=== PATIENT | female | born 1965 | race Caucasian/White ===

== ENCOUNTER 2017-04-27 06:33 | Day surgery (SDC) | payer OTHER ==
[~2017-04-27 06:33] MED LIST: Buffered Lidocaine 0.9% SYRIN* 5 ML/SYR SYRINGE INTRADERM ONE; Famotidine IV* 10 MG/ML 2 ML (20 mg) IV ONE
[2017-04-27] MEDS ORDERED: ceFAZolin 2 GM PREMIX (*) 50 ML IVPB ONE (06:38)
[2017-04-27] MEDS ORDERED: Famotidine IV* 10 MG/ML 2 ML (20 mg) ONE (06:38)
[2017-04-27] MEDS ORDERED: Dexamethasone IV* 4 MG/ML 1 ML (4 MG) ONE (06:38)
[2017-04-27] MEDS: Dexamethasone IV* 4 MG/ML 1 ML (4 MG) IV SLOW PU ONE ×2 (06:53→06:55)
[2017-04-27] MEDS ORDERED: fentaNYL* 50 MCG/ML 2 ML VIAL (100 MCG VIAL) ONE ×2 (07:42→08:26)
[2017-04-27] MEDS ORDERED: Midazolam* 1 MG/ML 2 ML VIAL (2 MG) ONE (07:42)
[2017-04-27] MEDS ORDERED: Bupivacaine 0.25% SDV* 30 ML ONE (07:45)
[2017-04-27] MEDS ORDERED: oxyCODONE/Acetamin 5/325 MG* TAB PO PRN (07:46)
[2017-04-27] MEDS ORDERED: PROCHLORPERAZINE INJ 5 MG/ML 2 ML VIAL IV PRN (07:46)
[2017-04-27] MEDS ORDERED: fentaNYL* 50 MCG/ML 2 ML VIAL (100 MCG VIAL) IV PRN (07:46)
[2017-04-27] MEDS ORDERED: HYDROcodone/ACETAMIN 5-325 MG* 1 TAB PO PRN (07:46)
[2017-04-27] MEDS ORDERED: Lidocaine 2% PF * 5 ML VIAL ONE (07:51)
[2017-04-27] MEDS ORDERED: Propofol* 10 MG/ML 20 ML BTL IV PUSH ONE (07:51)
[2017-04-27] MEDS ORDERED: Ondansetron INJ* 2 MG/ML VIAL ONE (08:29)
[2017-04-27] MEDS ORDERED: oxyCODONE/Acetamin 5/325 MG* TAB ONE (09:41)
[2017-04-27 10:41] VITALS: BP 120/70
--- NOTE | 2017-04-27 11:16 | OP ---
OPERATIVE REPORT: DATE OF OPERATION: 04/27/17 DATE OF : 69 SURGEON: Bang Rosa MD. ARTS AND CRAFTS TEACHER: TATE Del Valle. ANESTHESIOLOGIST: Dr. Osorio. ANESTHESIA: General. PRE-OP DIAGNOSES: 1. Left recurrent carpal tunnel syndrome. 2. Left cubital tunnel syndrome. POST-OP DIAGNOSES: 1. Left recurrent carpal tunnel syndrome. 2. Left cubital tunnel syndrome. PROCEDURE PERFORMED: 1. Revision of left open carpal tunnel release. 2. Left in situ cubital tunnel release. INDICATIONS: Sujatha has had progressive symptoms, clearly the worst of it was in the small and ring fingers where she is almost constantly numb. She has done well with the prior right cubital tunnel release and carpal tunnel release. She is having recurrence of the left carpal tunnel symptoms as shay elizabeth. I talked to her about her treatment options. Her prior surgery was in 2008. She wanted to pr oceed with revision of left carpal tunnel release and left cubital tunnel release. ESTIMATED BLOOD LOSS: 5 mL. COMPLICATIONS: None. FINDINGS: As expected. DESCRIPTION OF PROCEDURE: The patient was seen in the preoperative holding area. The correct side, site and procedure were identified. We came back to the operating room. The arm was prepped and dr jonesed in the usual fashion. Antibiotics were received and time-out was performed. I exsanguinated the arm with the Esmarch and the tourniquet was inflated to 250 mmHg. I then utiliz ed her prior carpal tunnel release incision and then brought this across the wrist flexion crease ob liquely in Travis type fashion. The dissection was carried down through the skin and some scar tiss ue and some subcutaneous tissue proximally. Distally it looks like the nerve has been nicely releas ed and there was nothing but scar tissue there. At the wrist flexion crease, there was a centimeter where it looked like normal [place] non-released transverse carpal ligament with very clear delineat ed transverse fibers in their normal position. I went ahead and released those. The release was ca rried out just off the radial aspect of the hook of the hamate ulnar to the origin of the thenar mus cles. The release was carried out from proximal to distal working from normal non-scar tissue down through the distal bed of initially the normal ligament and then scar tissue. I completed the relea se proximally and distally, everything was completely released. I released the last centimeter of t he fascia overlying the Murillo's ligament as well, as it looked like the artery was a little bit k inked, coming out of Guyon's canal. Once I had done this, I went ahead and irrigated out the wound. I checked the hand, nerve was completely decompressed, so I closed the skin with 4-0 nylon suture. I then turned my attention to the elbow, where a curvilinear incision was made, centered over Garcia e's ligament. Dissection was carried down through the subcutaneous tissue, proximally with the Bovi e and distally with the tenotomy scissors to preserve the medial and brachial cutaneous nerve. I be sandra to release the ulnar nerve just off the proximal aspect of Murillo's ligament. The release was carried out proximally with the use of an appendiceal retractor placed to retract the subcutaneous t issue and skin superficially. I released well past 8 cm proximal to the medial epicondyle. I then came back and continued the release distally. There was a very prominent anconeus epitrochlearis mu scle. I went ahead and excised the entirety of that muscle with the Bovie and with the rongeur. I then released the remainder of the Murillo's ligament, the superficial FCU fascia, I divided the two heads of the FCU and split the subfascial layer several centimeters distal to the medial epicondyle . Once there was absolutely no compression on the nerve, I went ahead and flexed and extended the e lbow. There was no subluxation of the nerve, so we irrigated out the wound. The subcutaneous tissu e was reapproximated with 3-0 Vicryl suture and the skin was closed with 4-0 nylon suture. A 0.25% Marcaine was infiltrated into all the operative wounds. The wounds were then dressed with 4x4s, hien rile Webril, and ABD at the elbow and then Rajendra bandages. Tourniquet was deflated. The hand pinked up immediately. She was then taken to the recovery room in stable condition. [id number]/[facility] #: [id number]
== END 2017-04-27 10:38 | disposition home or self-care (01) ==
LOC: OREAST 06:33
PROVIDERS: ATTEND Orthopaedic Surgery Hand Surgery
DX: G56.02 Carpal tunnel syndrome, left upper limb (principal); G56.22 Lesion of ulnar nerve, left upper limb; I10 Essential (primary) hypertension; J44.9 Chronic obstructive pulmonary disease, unspecified; I73.00 Raynaud's syndrome without gangrene; F17.210 Nicotine dependence, cigarettes, uncomplicated
CPT/HCPCS: A9270-GY; J0690; J1100; J2250; J2405; J2704; J3010

== ENCOUNTER 2017-06-25 10:03 | Emergency (ER) | payer OTHER ==
[2017-06-25 10:54] VITALS: BP 135/75
--- NOTE | 2017-06-25 11:04 | UC ---
Skin Complaint HPI - HPI Summary HPI Summary: pt c/o sinus pain, pressure , cough, and bilateral ear pain. Pt has history of psoriasis and is on methotrexate and humira with significant reduction of skin plaques as reported by pt. Pt is concerned that she has a psoriatic out break in bilateral ears. - History of Current Complaint Chief Complaint: UCRespiratory Time Seen by Provider: 06/25/17 10:36 Stated Complaint: COUGH,LEFT EAR PAIN Hx Obtained From: Patient Hx Last Menstrual Period: NOVASURE ?: No Onset/Duration: Gradual Onset, Lasting Days, Still Present, Resolved Timing: Constant Onset Severity: Mild Current Severity: Moderate Location: Ear (Right), Ear (Left) Character: Pruritus, Redness, Raised, Painful Aggravating Factor(s): Touch Alleviating Factor(s): Unknown Associated Signs & Symptoms: Positive: Tenderness - Allergy/Home Medications Allergies/Adverse Reactions: Allergies Allergy/AdvReac Type Severity Reaction Status Date / Time Bupropion [From Wellbutrin] Allergy Severe Agitation Verified 06/25/17 10:36 Naproxen [From Aleve] Allergy Severe Facial Verified 06/25/17 10:36 Redness/Flushing, swelling Latex Allergy Intermediate Hives Verified 06/25/17 10:36 Home Medications: Home Medications ARIPiprazole TAB* [Abilify TAB*] 2 mg PO DAILY 06/25/17 [History Confirmed 02/02] Cyclosporine 0.05% OPHTH (NF) [Restasis 0.05% OPHTH] 1 drop BOTH EYES DAILY 02/02 [History Confirmed 06/25/17] Review of Systems Constitutional: Negative Skin: Rash Eyes: Negative ENT: Ear Ache, Sinus Congestion, Sinus Pain/Tenderness Respiratory: Cough Cardiovascular: Negative Gastrointestinal: Negative Genitourinary: Negative Motor: Negative Neurovascular: Negative Musculoskeletal: Negative Neurological: Negative Psychological: Negative Is Patient Immunocompromised?: No All Other Systems Reviewed And Are Negative: Yes PMH/Surg Hx/FS Hx/Imm Hx Previously Healthy: Yes - psoriasis - Surgical History Surgical History: Yes Surgery Procedure, Year, and Place: LAPARSCOPIC NOVA SURE, 2008 - BILATERAL CARPAL TUNNEL AND RT SIDE ULNAR NERVE TRANSPOSITION, 2008 RT BREAST BIOPSY,2011 D&C 2013 BREAST REDUCTION 2012 AND REGRAPHED IN 05/01 HYSTERECTOMY 10/31. [facility] - UTERINE. D & C. 04/27/17- L carpal tunnel and ulnar nerve surgery. - Family History Known Family History: Positive: Cardiac Disease - Social History Occupation: Employed Full-time Lives: With Family Alcohol Use: Occasionally Substance Use Type: None Smoking Status (MU): Heavy Every Day Tobacco Smoker Type: Cigarettes Amount Used/How Often: 1/2 pack day Length of Time of Smoking/Using Tobacco: 35 years Have You Smoked in the Last Year: Yes Household Exposure Type: Cigarettes Physical Exam Triage Information Reviewed: Yes Appearance: Well-Appearing Vital Signs: Initial Vital Signs Temp 97.7 F 06/25/17 10:42 Pulse 75 06/25/17 10:42 Resp 18 06/25/17 10:42 BP 135/75 06/25/17 10:42 Pulse Ox 99 06/25/17 10:42 Vital Signs Reviewed: Yes Eye Exam: Normal ENT Exam: Other ENT: Positive: Sinus tenderness, Other - psoriatic lesions ~ 5mm in bilateral ear canals Dental Exam: Normal Neck exam: Normal Respiratory Exam: Normal Cardiovascular Exam: Normal Musculoskeletal Exam: Normal Neurological Exam: Normal Psychological Exam: Normal Skin: Positive: rashes - bilateral opening to ear canal Course/Dx - Differential Diagnoses - Skin Complaint Differential Diagnoses: Eczema, Other - sinusitis - Diagnoses Provider Diagnoses: psoriasis out break. sinusitis Discharge - Discharge Plan Condition: Stable Disposition: HOME Prescriptions: Azithromycin TAB* [Zithromax TAB (Z-SABAS) 250 mg #6 tabs] 2 tab PO .TODAY, THEN 1 DAILY #1 sabas Fluocinolone Acetonide (Otic) [Dermotic] 0.01 % OT DAILY #1 bottle Patient Education Materials: Sinusitis (ED), Psoriasis (ED) Referrals: Ashley Chaparro [Primary Care Provider] - If Needed
== END 2017-06-25 11:16 | disposition home or self-care (01) ==
LOC: UCCORT 10:03
DX: J32.9 Chronic sinusitis, unspecified (principal); L40.9 Psoriasis, unspecified; F17.210 Nicotine dependence, cigarettes, uncomplicated; Z88.8 Allergy status to other drugs, medicaments and biological substances; Z88.6 Allergy status to analgesic agent
CPT/HCPCS: 99212; G0463

== ENCOUNTER 2017-11-27 08:09 | Emergency (ER) | payer OTHER ==
[2017-11-27 08:44] VITALS: BP 130/73
[2017-11-27] MEDS ORDERED: Ipratropium 0.5MG/2.5ML NEB* 0.5 MG/2.5 ML NEB.SOLN INH ONE (08:54)
[2017-11-27] MEDS ORDERED: Albuterol 2.5 MG/3 ML NEB.SOL* (0.083%) INH ONE (08:54)
--- NOTE | 2017-11-27 08:58 | UC ---
Respiratory Complaint HPI - HPI Summary HPI Summary: 52 yo female with a 2-3 day hx of cough and wheezing now with left otalgia and sore throat no f/c she has psoriatic arthritis and is currently on prednisone for a flare (x 3 days ) no cp or sob - History of Current Complaint Chief Complaint: UCRespiratory Stated Complaint: SORE THROAT, EARS, COUGH Time Seen by Provider: 11/27/17 08:47 Hx Obtained From: Patient Hx Last Menstrual Period: NOVASURE Onset/Duration: Sudden Onset, Lasting Days Timing: Constant Severity Initially: Mild Severity Currently: Moderate Pain Intensity: 6 Pain Scale Used: 0-10 Numeric Character: Cough: Nonproductive Aggravating Factors: Nothing Alleviating Factors: Bronchodilator Associated Signs And Symptoms: Positive: Wheezing, Nasal Congestion - Allergies/Home Medications Allergies/Adverse Reactions: Allergies Allergy/AdvReac Type Severity Reaction Status Date / Time bupropion [From Wellbutrin] Allergy Agitation Verified 11/27/17 08:30 latex Allergy Hives Verified 11/27/17 08:30 naproxen Allergy Facial Verified 11/27/17 08:30 Redness/Flushing Home Medications: Home Medications Oxybutynin TAB* [Ditropan TAB*] 10 mg PO BID 11/27/17 [History Confirmed ] Secukinumab [Cosentyx (2 Syringes)] 150 mg SQ WEEKLY 11/27/17 [History Confirmed 11/27/17] PMH/Surg Hx/FS Hx/Imm Hx Previously Healthy: Yes - psoriatic arhritis Respiratory History: Asthma, Bronchitis - Surgical History Surgical History: Yes Surgery Procedure, Year, and Place: LAPARSCOPIC NOVA SURE, 2008 - BILATERAL CARPAL TUNNEL AND RT SIDE ULNAR NERVE TRANSPOSITION, 2008 RT BREAST BIOPSY,2011 D&C 2013 BREAST REDUCTION 2012 AND REGRAPHED IN 05/01 HYSTERECTOMY 10/31. [facility] - UTERINE. D & C. 04/27/17- L carpal tunnel and ulnar nerve surgery. - Family History Known Family History: Positive: Cardiac Disease, Other - mom with MS - Social History Alcohol Use: Occasionally Substance Use Type: None Smoking Status (MU): Heavy Every Day Tobacco Smoker Type: Cigarettes Amount Used/How Often: 1/2 pack day Length of Time of Smoking/Using Tobacco: 35 years Have You Smoked in the Last Year: Yes Household Exposure Type: Cigarettes Review of Systems Constitutional: Negative Skin: Negative Eyes: Negative ENT: Sore Throat, Ear Ache, Sinus Congestion Respiratory: Cough Cardiovascular: Negative Gastrointestinal: Negative Genitourinary: Negative Motor: Negative Neurovascular: Negative Musculoskeletal: Arthralgia - chronic Neurological: Negative Psychological: Negative Is Patient Immunocompromised?: No All Other Systems Reviewed And Are Negative: Yes Physical Exam Triage Information Reviewed: Yes Appearance: Well-Appearing, No Pain Distress, Well-Nourished Vital Signs: Initial Vital Signs Temp 99.1 F 11/27/17 08:38 Pulse 104 11/27/17 08:38 Resp 20 11/27/17 08:38 BP 130/73 11/27/17 08:38 Pulse Ox 97 11/27/17 08:38 Eyes: Positive: Conjunctiva Clear ENT: Positive: Hearing grossly normal, Sinus tenderness, Uvula midline. Negative: TMs normal - left recctracted, TM bulging, TM dull, TM red, Tonsillar swelling, Tonsillar exudate, Trismus, Muffled voice, Hoarse voice, Dental tenderness Dental Exam: Normal Neck: Positive: Supple, Nontender, No Lymphadenopathy Respiratory: Positive: No respiratory distress, No accessory muscle use, Wheezing Cardiovascular: Positive: RRR, No Murmur Musculoskeletal: Positive: No Edema Neurological: Positive: Alert Psychological Exam: Normal Skin Exam: Normal UC Diagnostic Evaluation - Laboratory O2 Sat by Pulse Oximetry: 97 - normal/ not hypoxic Re-Evaluation - Re-Evaluation First Eval Re-Evaluation Time: 09:22 Change: Improved Respiratory Course/Dx - Differential Dx/Diagnosis Provider Diagnoses: acute bronchitis. serous otitis media Discharge - Sign-Out/Discharge Documenting (check all that apply): Discharge/Admit/Transfer - Discharge Plan Condition: Stable Disposition: HOME Prescriptions: Albuterol 2.5MG/3ML (0.083%)* [Ventolin 2.5 MG/3 ML NEB.SHIMON*] 2.5 mg INH QID PRN #1 neb.shimon PRN Reason: Wheezing DOXYcycline CAP(*) [DOXYcycline 100MG CAP(*)] 100 mg PO BID #14 cap Fluconazole 150 MG (NF) [Diflucan 150 mg (NF)] 150 mg PO ONCE #1 tab predniSONE [Deltasone] 40 mg PO DAILY #6 tab Patient Education Materials: Acute Bronchitis (ED), Serous Otitis Media (ED) Referrals: Ashley Chaparro [Primary Care Provider] - 5 Days (if not better) Additional Instructions: 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
[2017-11-27] MEDS ORDERED: predniSONE TAB* 20 MG PO ONE (09:16)
== END 2017-11-27 09:31 | disposition home or self-care (01) ==
LOC: UCCORT 08:09
DX: J20.9 Acute bronchitis, unspecified (principal); H65.90 Unspecified nonsuppurative otitis media, unspecified ear; F17.210 Nicotine dependence, cigarettes, uncomplicated; Z88.6 Allergy status to analgesic agent; Z88.8 Allergy status to other drugs, medicaments and biological substances
CPT/HCPCS: 99213; G0463; J7512

== ENCOUNTER 2018-12-18 13:46 | Emergency (ER) | payer OTHER ==
--- OUTSIDE RECORDS SUMMARY | 2018-12-18 14:20 | XMS REPORT | Continuity of Care Document ---
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 Rafael Curtis NP Primary Care Physician Unavailable Payers Date Identification Numbers Payment Provider Subscriber Effective: 2011 Policy Number: [id number] [place] [employer] Sujatha B Gallego PayID: [id number] [address] [place] [address] Expires: 2018 Policy Number: [id number] Medicaid Sujatha B Gallego PayID: [id number] [address] [place] [address] Expires: 2010 Policy Number: [id number] [employer] Sujatha B Julián PayID: [id number] [address] [address] [place] [address] Policy Number: [id number] [employer] Sujatha B Gallego PayID: [id number] [address] [place] [address] Effective: 2010 Policy Number: [id number] [place] [employer] Sujatha B Gallego Expires: 2011 PayID: [id number] [address] [place] [address] Advance Directives Description No Information Available Problems Active Problems Provider Date Lateral epicondylitis Sukhi Santana MD Onset: 10/25/2010 Lesion of ulnar nerve Sukhi Santana MD Onset: 10/25/2010 Sprain of ankle Sukhi Santana MD Onset: 08/05/2011 Family history of malignant neoplasm Lupillo Lucio MD Onset: 08/25/2017 of gastrointestinal tract Heartburn Lupillo Lucio MD Onset: 08/25/2017 Essential hypertension Sunil Okeefe M.D., Onset: 10/22/2018 [facility] Dyspnea Sunil Okeefe M.D., Onset: 10/22/2018 [facility] Tobacco user Sunil Okeefe M.D., Onset: 10/22/2018 [facility] Chronic obstructive lung disease Sunil Okeefe M.D., Onset: 10/22/2018 [facility] Family History Date Family Member(s) Observation Comments Father due to [place] () Father Heart Disease Father Heart Attack 71 : (age 70 Mother due to MS complications Years) Mother Multiple Sclerosis Mother Pneumonia 70s Social History Type Date Description Comments Sex Unknown Marital Status Patient is Lives With Significant Other Home Environment Lives With boyfriend Diet No Restrictions 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 Work Status Not Currently Working Tobacco Use Start: Unknown Current Cigarette Smoker 1 Pack Daily Smokeless Tobacco Never Used Smokeless Tobacco ETOH Use Currently consumes 2-3 times a week, alcohol socially beer Recreational Drug Use Denies Drug Use Tobacco Use Start: Unknown Patient is a current 1 ppd x 35 yrs smoker, smokes every day Smoking Status Reviewed: 11/25/18 Patient is a current 1 ppd x 35 yrs smoker, smokes every day Exercise Type/Frequency Does not exercise Allergies, Adverse Reactions, Alerts Active Allergies Reaction Severity Comments Date Latex Rash Wellbutrin Causes Emotional Problems Aleve Swelling 10/25/2010 Medications Active Medications SIG Qnty Indications Ordering Date Provider Aspirin Ec 1 by mouth every R06.02 Hogue, Glenys 81mg Tablets DR mayra Garcia 9 MSN, [employer] Clopidogrel Bisulfate 1 by mouth every 30tabs R06.02 Hogue, Glenys 75mg day Wilbertetta, 9 Tablets MSN, [employer] Isosorbide Mononitrate ER 1 by mouth every 30tabs R06.02 Hogue, Glenys 30mg day Wilbertetta, 9 Tablets ER 24HR MSN, [employer] Restasis 1 drop both eyes 180units H04.123 Lupillo Graves, 0.05% Emulsion twice daily. 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 Magnesium Oxide -MG 1 by mouth every Unknown Supplement day 0 400mg Capsules Hydroxyzine HCL 2 po @ hs and Unknown 50mg Tablets prn 0 Abilify 1 po Am Unknown 2mg Tablets 0 Abilify 1 po hs Unknown 10mg Tablets 0 Advair Diskus use 1 breath Unknown 250-50mcg/Dose twice a day 0 Aerosol Spiriva Handihaler inhale the Unknown 18mcg contents of 1 0 Capsules capsule via handihaler once daily Metoprolol Succinate ER 1 po qd 90tabs Unknown 50mg 0 Tablets ER 24HR Cymbalta qd Unknown 60mg Caps DR Part 0 Claritin po qd Hogue, Glenys 10mg Tablets Jose, 0 MSN, [employer] Protonix 1 po qd Hogue, Glenys 40mg Tablets DR Garcia, 0 MSN, [employer] Albuterol Sulfate prn Hogue, Glenys (2.5mg/3ML) Jose, 0 Nebulizer MSN, [employer] Hydrochlorothiazide 1 po qd 90tabs Hogue, Glenys 25mg Jose, 0 Tablets MSN, [employer] History Medications Golytely drink half the 4000ml Z80.0 Lupillo Lucio, 08/25/2017 - 236gm Solution evening before MD Unknown Rec and half the morning of the procedure (1 cup every 10') Dulcolax 4 tablets taken 4tabs Z80.0 Lupillo Lucio, 08/25/2017 - 5mg Tablets DR glenis 8pm the day Unknown before the procedure Citrate Of Magnesia 1 bottle at 1pm 296ml Z80.0 Lupillo Lucio, 2017 - day before MD Unknown 1.745GM/30ML Solution procedure Restasis 1 drop both 180units H04.123 Lupillo Graves MD 05/25/2017 - 0.05% Emulsion eyes twice 10/26/2018 daily. please dispense 180 vials, which is 3 month supply Fluorometholone please apply 1 5ml H04.123 Lupillo Graves MD 05/25/2017 - 0.1% drop to both Unknown Suspension eyes 2 times daily for 2 weeks Codine 1-2 po as Unknown - needed for pain Unknown Cyclobenzaprine HCL prn Unknown - Unknown 10mg Tablets Humira inject q 2 Unknown - 40mg/0.8ML PSKT weeks Unknown Folic Acid 2 by mouth Unknown - 1mg Tablets every day Unknown Oxybutynin Chloride 2 po bid Unknown - ER Unknown 5mg Tablets ER 24HR Clonidine HCL 1 po daily Unknown - 0.1mg Unknown Tablets Methotrexate 8 po weekly Unknown - 2.5mg Unknown Tablets Meloxicam 1 by mouth Unknown - 15mg Tablets every day c Unknown food Tylenol PM Extra po prn 90tabs Unknown - Strength Unknown 500-25mg Tablets Vicodin 1-2 po q4h prn Hogue, Glenys - 5-500mg Tablets OZZY Garcia, 08/04/2011 [employer] Celexa 1 po qd Hogue, Glenys - 20mg Tablets OZZY Garcia, 10/24/2010 [employer] Diltiazem HCL 1 po bid Hogue, Glenys - 30mg OZZY Garcia, 10/24/2010 Tablets [employer] Xanax 1 tab po qd prn Hogue, Glenys - 1mg Tablets OZZY Garcia, 10/24/2010 [employer] Ibuprofen po qd prn Hogue, Glenys - 600mg Tablets OZZY Garcia, Unknown [employer] Multivitamins 1 po qd Unknown - Tablets 08/04/2011 Immunizations Description No Information Available Vital Signs Date Vital Result Comment 11/25/2018 11:09am BP Systolic Sitting Left Arm 128 mmHg BP Diastolic Sitting Left Arm 75 mmHg Heart Rate 72 /min Respiratory Rate 18 /min Weight 219.00 lb O2 % BldC Oximetry 98 % ora 10/22/2018 8:47am BP Systolic Sitting Left Arm 124 mmHg BP Diastolic Sitting Left Arm 86 mmHg Heart Rate 70 /min Respiratory Rate 16 /min Height 62 inches 5'2" Weight 216.00 lb BMI (Body Mass Index) 39.5 kg/m2 BSA (Body Surface Area) 1.98 m2 Stopover body weight in kilograms 50 kg O2 Saturation Level with Exercise 93 % 10/07/2018 12:55pm BP Systolic Sitting Left Arm 130 mmHg BP Diastolic Sitting Left Arm 83 mmHg Heart Rate 72 /min Respiratory Rate 16 /min Height 62 inches 5'2" Weight 215.00 lb BMI (Body Mass Index) 39.3 kg/m2 BSA (Body Surface Area) 1.97 m2 Stopover body weight in kilograms 50 kg O2 Saturation Level with Exercise 98 % 09/15/2017 8:55am BP Systolic Sitting Left Arm 124 mmHg BP Diastolic Sitting Left Arm 82 mmHg Heart Rate 68 /min Respiratory Rate 16 /min Height 62 inches 5'2" Weight 200.00 lb BMI (Body Mass Index) 36.6 kg/m2 BSA (Body Surface Area) 1.91 m2 Stopover body weight in kilograms 50 kg 08/25/2017 9:36am BP Systolic Sitting Left Arm 120 mmHg BP Diastolic Sitting Left Arm 80 mmHg Heart Rate 84 /min Respiratory Rate 16 /min Height 62 inches 5'2" Weight 200.00 lb BMI (Body Mass Index) 36.6 kg/m2 BSA (Body Surface Area) 1.91 m2 Stopover body weight in kilograms 50 kg 08/05/2011 8:31am Height 62 inches 5'2" Weight 158.00 lb BMI (Body Mass Index) 28.9 kg/m2 10/25/2010 10:46am Height 62 inches 5'2" Weight 157.00 lb BMI (Body Mass Index) 28.7 kg/m2 05/09/2009 2:32pm Heart Rate 74 /min Respiratory Rate 16 /min Weight 149.00 lb Results Description No Information Available Procedures Date Code Description Status 11/15/2018 07853 Echocardiogram Complete Completed 11/10/2018 77443 Stress Test Interpre And Report Only Completed 11/10/2018 68989 Stress Test Physician Super Only Completed 11/10/2018 13040 Myocardial Imaging Tomographic Multiple Study AT Rest Completed Or Stress 10/26/2018 36449 Eye Exam Est Patient Comprehensive Completed 10/22/2018 55480 EKG-Tracing And Report Completed 10/15/2018 93546 Bronchospasm Provocation Evaluation Multi Spirometric Completed Determinati 10/15/2018 71177 Spirometry Completed 08/31/2017 40415448 Colonoscopy Completed 08/31/2017 68739 EGD With Biopsy Completed 08/31/2017 19309 Colonoscopy Completed 10/21/2013 64402 Anesthesia, Lower Abdomen Surgery Not Otherwise Spec Completed 09/09/2013 04682 Anesthesia, Hysteroscopy, Hystersalpingography Completed 05/09/2009 23007 EKG-Tracing And Report Completed 05/09/2009 84703 EKG-Tracing And Report Completed 05/08/2009 55183 Stress Test Interpre And Report Only Completed 05/08/2009 16156 Stress Test Physician Super Only Completed 12/04/2008 56275 Neuroplasty median nerve at carpal tunnel Completed 10/02/2008 08524 Neuroplasty median nerve at carpal tunnel Completed 10/02/2008 55161 Neuroplasty &/or transposition cranial nerve/ulnar Completed nerve at elbow 09/20/2008 14162 EKG Interpretation And Report Only Completed Encounters Type Date Location Provider Dx Diagnosis Office Visit 11/25/2018 Cardiology Office Glenys Hogue R06.02 Shortness of 11:20a Jose, OZZY, breath [employer] I10 Essential (primary) hypertension Office Visit 10/22/2018 9:00a Cardiology Sunil Okeefe J44.9 Chronic Office Yolanda Bertrand, FACC obstructive pulmonary disease, unspecified F17.210 Nicotine dependence, cigarettes, uncomplicated R06.02 Shortness of breath I10 Essential (primary) hypertension Office Visit 10/07/2018 1:00p Pulmonology Brock Drake MD J44.9 Chronic obstructive pulmonary disease, unspecified E66.8 Other obesity F17.210 Nicotine dependence, cigarettes, uncomplicated Z71.6 Tobacco abuse counseling Office Visit 09/15/2017 9:30a Lupillo Lopez MD Z80.0 Family history of malignant neoplasm of digestive organs K21.9 Gastro-esophageal reflux disease without esophagitis Office Visit 08/25/2017 9:30a Lupillo Lopez MD R12 Heartburn Z80.0 Family history of malignant neoplasm of digestive organs Office Visit 05/25/2017 9:15a Ophthalmology Lupillo Graves, H04.123 Dry eye syndrome MD of bilateral lacrimal glands L40.9 Psoriasis, unspecified Office Visit 08/05/2011 [facility]opa[facility] Max, 845.00 Sprains & Strains 9:00a Office Sukhi Newsome MD Ankle Unspec Site Office Visit 10/25/2010 [facility], 726.32 Epicondylitis 10:30a Office Sukhi Newsome MD Lateral 354.2 Lesion Ulnar Nerve Plan of Treatment Future Appointment(s):04/11/2019 2:30 pm - Brock Drake MD at [id number]/09 /2019 - Glenys Hogue, MSN, FNPR06.02 Shortness of breathNew Medication :Aspirin Ec 81 mg - 1 by mouth every dayClopidogrel Bisulfate 75 mg - 1 by mouth every dayIsosorbide Mononitrate ER 30 mg - 1 by mouth every dayNew Labs: Comprehensive Metabolic Panel, Ordered: 11/25/18CBC W/Automated Diff, Ordered: 11/25/18New Orders:Cardiac Catheterization With Poss. Intervention, Ordered: 04/07Comments:I will start her on ASA and Plavix today and have asked her to stop the Celebrex. She will start taking isosorbide and we will set up the cath.I10 Essential (primary) hypertensionComments:No changes.AllFollow up:After cardiac catheterization is completed.
--- NOTE | 2018-12-18 14:35 | UC ---
Throat Pain/Nasal Eloy HPI - HPI Summary HPI Summary: Pt has a right earache and sore throat today. She had a cardiac cath done yesterday in your right wrist, but that is healing well and only mildly tender to touch. She feels like she is coming down with a cold. As I was examining the patient and noted a normal right ear, she said "Maybe it's my tooth, that's been killing me the past few days" She has had pain to the right upper distal molar with swelling of the gum. - History of Current Complaint Stated Complaint: RT EYE/EAR, SORE THROAT, HEADACHE Time Seen by Provider: 12/18/18 14:26 Hx Obtained From: Patient Hx Last Menstrual Period: NOVASURE ?: No Onset/Duration: Gradual Onset Severity: Moderate Cough: None Associated Signs & Symptoms: Positive: Negative - Allergies/Home Medications Allergies/Adverse Reactions: Allergies Allergy/AdvReac Type Severity Reaction Status Date / Time bupropion [From Wellbutrin] Allergy Agitation Verified 12/18/18 14:34 latex Allergy Hives Verified 12/18/18 14:34 naproxen Allergy Facial Verified 12/18/18 14:34 Redness/Flushing Home Medications: Home Medications DULoxetine DR CAP* [Cymbalta CAP*] 60 mg PO QAM 12/18/18 [History Confirmed 08/07] Fluticasone-Salmeterol 500-50* [Advair Diskus 500-50*] 2 puff INH QAM 12/18/18 [ History Confirmed 12/18/18] Hydrochlorothiazide TAB* [Hydrodiuril TAB*] 25 mg PO QAM 12/18/18 [History Confirmed 12/18/18] LoraTADine TAB(NF) [Claritin 10 MG TAB(NF)] 10 mg PO QAM 12/18/18 [History Confirmed 12/18/18] Magnesium Oxide TAB* [MagOx 400 TAB*] 400 mg PO QAM 12/18/18 [History Confirmed 12/18/18] Metoprolol Tartrate TAB* [Lopressor TAB*] 50 mg PO QAM 12/18/18 [History Confirmed 12/18/18] Pantoprazole TAB * [Protonix TAB*] 40 mg PO QAM 12/18/18 [History Confirmed 08/07] Tiotropium CAP.INH* [Spiriva CAP.INH*] 1 cap.inh INH QAM 12/18/18 [History Confirmed 12/18/18] PMH/Surg Hx/FS Hx/Imm Hx Previously Healthy: Yes Cardiovascular History: Hypertension Respiratory History: COPD, Asthma - Surgical History Surgical History: Yes Surgery Procedure, Year, and Place: LAPARSCOPIC NOVA ADELINA, 2008 - BILATERAL CARPAL TUNNEL AND RT SIDE ULNAR NERVE TRANSPOSITION, 2008 RT BREAST BIOPSY,2011 D&C 2013 BREAST REDUCTION 2012 AND REGRAPHED IN 05/01 HYSTERECTOMY 10/31. [facility] - UTERINE. D & C. 04/27/17- L carpal tunnel and ulnar nerve surgery. - Family History Known Family History: Positive: Cardiac Disease, Other - mom with MS - Social History Alcohol Use: Weekly Alcohol Amount: 1-2 drinks per week Substance Use Type: None Smoking Status (MU): Former Smoker Type: Cigarettes Amount Used/How Often: 1/2 pack day Length of Time of Smoking/Using Tobacco: 35 years Have You Smoked in the Last Year: Yes When Did the Patient Quit Smoking/Using Tobacco: Quit November 25, 2018 Household Exposure Type: Cigarettes Review of Systems All Other Systems Reviewed And Are Negative: Yes ENT: Positive: Sore Throat - Right earache and sore throat. Pain right upper distal molar with swelling of the gumline., Ear Ache Is Patient Immunocompromised?: No Physical Exam Triage Information Reviewed: Yes Appearance: Well-Appearing, No Pain Distress, Well-Nourished Vital Signs Reviewed: Yes Eyes: Positive: Conjunctiva Clear ENT: Positive: Hearing grossly normal, Pharynx normal, TMs normal, Uvula midline Dental: Positive: Other: - Right upper distal molar has swelling of the gum but no redness and no drainage. It is tender on palpation. Neck: Positive: Supple, Nontender, No Lymphadenopathy Respiratory: Positive: Lungs clear, Normal breath sounds, No respiratory distress, No accessory muscle use Cardiovascular: Positive: RRR, No Murmur, Pulses Normal, Brisk Capillary Refill Musculoskeletal Exam: Normal Neurological Exam: Normal Psychological Exam: Normal Skin Exam: Normal Throat Pain/Nasal Course/Dx - Course Course Of Treatment: Pt comfortable here. I discussed this with Dr. Galvan and I will start the pt on VK to follow up with dentist on Thursday for an appointment. - Differential Dx/Diagnosis Provider Diagnosis: Toothache Discharge - Sign-Out/Discharge Documenting (check all that apply): Patient Departure All imaging exams completed and their final reports reviewed: No Studies - Discharge Plan Condition: Fair Disposition: HOME Prescriptions: Fluconazole 150 MG TAB* [Diflucan 150 MG TAB*] 150 mg PO UC ONCE PRN 1 Days #1 tablet PRN Reason: Yeast infection Penicillin VK 500 MG TAB(NF) [Penicillin VK 500 mg Tab] 500 mg PO TID 10 Days # 30 tab Patient Education Materials: Dental Abscess (ED) Referrals: Ashley Chaparro [Primary Care Provider] - Additional Instructions: Take your regular pain med as prescribed for severe pain. Definite follow up with your dentist...call Thursday and make an appointment. - Billing Disposition and Condition Condition: FAIR Disposition: Home
[2018-12-18 14:39] VITALS: BP 136/63
== END 2018-12-18 14:59 | disposition home or self-care (01) ==
LOC: UCCORT 13:46
DX: K08.89 Other specified disorders of teeth and supporting structures (principal); I10 Essential (primary) hypertension; J44.9 Chronic obstructive pulmonary disease, unspecified; Z87.891 Personal history of nicotine dependence
CPT/HCPCS: 99212; G0463

== ENCOUNTER 2019-05-11 08:29 | Emergency (ER) | payer OTHER ==
--- OUTSIDE RECORDS SUMMARY | 2019-05-11 08:40 | XMS REPORT | Continuity of Care Document ---
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 Onset: 09/19/2014 Note: bilateral (with previous repair) FH: Multiple sclerosis Gina Guerrero M.D. Onset: 09/19/2014 Note: with nonspecific white matter changes on MRI Trigeminal neuralgia Gina Guerrero M.D. Onset: 09/19/2014 Note: right Lesion of ulnar nerve Bang Rosa MD Onset: 11/18/2016 Low back pain Ben Mensah M.D. Onset: 04/15/2017 Unspecified injury of muscle(s) and tendon(s) Bang Rosa MD Onset: 03/18 of the rotator cuff of left shoulder, subsequent encounter Disorder of shoulder Bang Rosa MD Onset: 10/06/2017 Social History Type Date Description Comments Sex Unknown Smokeless Tobacco Never Used Smokeless Tobacco ETOH Use Occasionally consumes alcohol Recreational Drug Use Denies Drug Use Tobacco Use Start: Unknown End: Patient is a former smoker Unknown Smoking Status Reviewed: 04/08/19 Patient is a former smoker Exercise Type/Frequency Does not exercise Allergies, Adverse Reactions, Alerts Active Allergies Reaction Severity Comments Date Aleve 05/05/2012 Latex 11/14/2014 Wellbutrin 05/02/2015 Environmental 07/08/2017 Medications Active Medications SIG Qnty Indications Ordering Date Provider Wrist Splint neutral or 20 2units Gina Misc extension; humaira Guerrero M.D. 4 at night for 1 month Hydrocodone-Acetaminophen 1 tab by mouth Unknown every 8 hours as 0 5-325mg Tablets needed for pain Ibuprofen 1 by mouth Three Unknown 400mg Tablets times a day as 0 needed Celecoxib 1 po bid Bennett, 200mg Capsules Jianghong, 0 M.DCielo Trospium Chloride 1 by mouth every 60tabs Unknown 20mg Tablets day-extended 0 release Cosentyx 300 Dose 300 mg by Unknown 150mg/ml Soln subcutaneous 0 Prefill Syringe injection every 4 weeks Cymbalta 1 by mouth at Unknown 30mg Caps DR Part bedtime 0 Abilify take one tablet Unknown 2mg Tablets by mouth in A.M. 0 Hydrochlorothiazide 1 po qd Unknown 25mg 0 Tablets Magnesium once a day, Unknown 400mg Capsules 0 Cymbalta 1 po qam 90caps Unknown 60mg Caps DR Part 0 Proventil HFA 2 puffs po q 4 1monthsu Unknown 108(90Base) hours prn 0 mcg/ac Aerosol Advair Diskus 1 puff po bid 1units Unknown 250-50mcg/Dose 0 Aerosol Spiriva Handihaler 1 inhalation po 1month Unknown 18mcg qam 0 Capsules Protonix 1 po qd 100tabs Unknown 40mg Tablets DR 0 Metoprolol Tartrate 1 po every day 60tabs Unknown 25mg 0 Tablets Loratadine 1 po qd 30tabs Unknown 10mg Tablets 0 Medications Administered in Office Medication SIG Qnty Indications Ordering Provider Date Celestone 3 mg and 3mg Bang Rosa MD 01/21/2019 Injection Celestone 3 mg and 3mg Bang Rosa MD 09/17/2018 Injection Celestone 3 mg and 3mg Bang Rosa MD 09/17/2018 Injection Celestone 3 mg and 3mg Bang Rosa MD 11/06/2017 Injection Depomedrol 20MG Bang Rosa MD 10/06/2017 Injection Celestone 3 mg and 3mg Bang Ernandez M.D. 08/12/2017 Injection Celestone 3 mg and 3mg Bang Ernandez M.D. 05/20/2017 Injection Depomedrol 80MG MANJIT Hodge 05/02/2015 Injection Depomedrol 80MG Kelli Fisher M.D. 05/02/2015 Injection Depomedrol 80MG Kelli Fisher M.D. 05/02/2015 Injection Depomedrol 80MG Kelli Fisher M.D. 08/10/2013 Injection Depomedrol 80MG Kelli Fisher M.D. 12/22/2012 Injection Immunizations Description No Information Available Vital Signs Date Vital Result Comment 04/08/2019 11:04am Height 62 inches 5'2" Weight 200.00 lb Heart Rate 68 /min BP Systolic Sitting 131 mmHg BP Diastolic Sitting 81 mmHg Body Temperature 97.4 F Pain Level 0 with pain medication O2 % BldC Oximetry 90 % BMI (Body Mass Index) 36.6 kg/m2 03/18/2019 9:31am Height 62 inches 5'2" Weight 209.00 lb Heart Rate 62 /min BP Systolic 132 mmHg BP Diastolic 82 mmHg Respiratory Rate 18 /min Pain Level 7 Back, legs, hips BMI (Body Mass Index) 38.2 kg/m2 Results Description No Information Available Procedures Date Code Description Status 04/08/2019 23103 Inject/Drain Joint/Bursa Major W/O US Completed 01/21/2019 32412 Inject/Drain Joint/Bursa Major W/O US Completed Medical Devices Description No Information Available Encounters Type Date Location Provider Dx Diagnosis Office Visit 03/18/2019 Orthopedic Bang Rosa, S46.002D Unsp inj 9:45a [facility]/tend the [place] rotator cuff of l shoulder, subs M75.41 Impingement syndrome of right shoulder M19.012 Primary osteoarthritis, left shoulder Office Visit 01/21/2019 2:00p Orthopedic Bang M75.42 Impingement [facility] Rosa MD syndrome of left AT [place] shoulder Assessments Date Code Description Provider 04/08/2019 S46.002D Unspecified injury of muscle(s) and tendon(s) Bang Rosa MD of the rotator cuff of left shoulder, subsequent encounter 04/08/2019 M75.41 Impingement syndrome of right shoulder Bang oRsa MD 03/18/2019 S46.002D Unspecified injury of muscle(s) and tendon(s) Bang Rosa MD of the rotator cuff of left shoulder, subsequent encounter 03/18/2019 M75.41 Impingement syndrome of right shoulder Bang Rosa MD 03/18/2019 M19.012 Primary osteoarthritis, left shoulder Bang Rosa MD 01/21/2019 M75.42 Impingement syndrome of left shoulder Bang Rosa MD Plan of Treatment Future Appointment(s):05/06/2019 9:45 am - Bang Rosa MD [facility]04/28/2019 10:30 am - Bang Rosa MD at [facility]04/08/2019 - Bang Rosa MDS46.002D Unspecified injury of muscle(s) and tendon(s) of the rotator cuff of left shoulder, subsequent encounterFollow up:Follow up: 10-14 days kcjtdvU74.41 Impingement syndrome of right shoulder Functional Status Description No Information Available Mental Status Description No Information Available Referrals Description No Information Available
[2019-05-11 08:57] VITALS: BP 132/77
--- NOTE | 2019-05-11 09:39 | ED ---
Skin Complaint - HPI Summary HPI Summary: 54 yr old female with the complaint of tick bite. Unknown length of time tick attached. Location upper right chest near clavicle. Tick was not engorged; she removed it; it hurts a lot and there is small red area with tenderness. She has no other complaints. She believes she aquired the tick last evening at an outdoor sporting event. Noticed it in middle of night and pulled it off. - History of Current Complaint Chief Complaint: UCBiteInjury Time Seen by Provider: 05/11/19 08:58 Stated Complaint: TICKBITE Hx Last Menstrual Period: NOVASURE Pain Intensity: 2 - Allergy/Home Medications Allergies/Adverse Reactions: Allergies Allergy/AdvReac Type Severity Reaction Status Date / Time bupropion [From Wellbutrin] Allergy Agitation Verified 05/11/19 08:50 latex Allergy Hives Verified 05/11/19 08:50 naproxen Allergy Facial Verified 05/11/19 08:50 Redness/Flushing Home Medications: Home Medications celeCOXIB CAP* [CeleBREX CAP*] 200 mg PO BID 05/11/19 [History Confirmed ] PMH/Surg Hx/FS Hx/Imm Hx Previously Healthy: Yes Endocrine/Hematology History: Denies: Hx Diabetes Cardiovascular History: Reports: Hx Hypertension Denies: Hx Pacemaker/ICD Respiratory History: Reports: Hx Asthma, Hx Chronic Obstructive Pulmonary Disease (COPD) GI History: Reports: Hx Gastroesophageal Reflux Disease History: Denies: Hx Dialysis, Hx Renal Disease Musculoskeletal History: Reports: Hx Arthritis, Hx Back Problems, Hx Fibromyalgia Sensory History: Reports: Hx Contacts or Glasses - glasses Denies: Hx Cataracts, Hx Hearing Aid Opthamlomology History: Reports: Hx Contacts or Glasses - glasses Denies: Hx Cataracts Neurological History: Reports: Other Neuro Impairments/Disorders - psoriasis Psychiatric History: Reports: Hx Anxiety, Hx Depression, Hx Panic Disorder - Cancer History Cancer Type, 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 [facility] - UTERINE. D & C. 04/27/17- L carpal tunnel and ulnar nerve surgery. Hx Anesthesia Reactions: No Infectious Disease History: No Infectious Disease History: Denies: Traveled Outside the [place] in Last 30 Days - Family History Known Family History: Positive: Cardiac Disease, Other - mom with MS - Social History Alcohol Use: Occasionally Alcohol Amount: 1-2 drinks per week Substance Use Type: Reports: None Smoking Status (MU): Former Smoker Type: Cigarettes Amount Used/How Often: ~1/2-1 PPD x 40+ Years Length of Time of Smoking/Using Tobacco: 35 years Have You Smoked in the Last Year: Yes Review of Systems Constitutional: Negative Positive: Other - tick bite All Other Systems Reviewed And Are Negative: Yes Physical Exam Triage Information Reviewed: Yes Vital Signs On Initial Exam: Initial Vitals Temp Pulse Resp BP Pulse Ox 98.3 F 88 18 132/77 99 05/11/19 08:48 05/11/19 08:48 05/11/19 08:48 05/11/19 08:48 05/11/19 08:48 Vital Signs Reviewed: Yes Appearance: Positive: Well-Appearing Skin: Positive: Warm, Other - bite inessa without any obvious residual foreign body at right side upper chest near clavicle. 1 cm erythema with tenderness. No bulls eye or erythema migrans. Head/Face: Positive: Normal Head/Face Inspection Eyes: Positive: EOMI ENT: Positive: Normal ENT inspection Neck: Positive: Nontender Respiratory/Lung Sounds: Positive: Clear to Auscultation Cardiovascular: Positive: RRR. Negative: Murmur Musculoskeletal: Positive: Normal, Strength/ROM Intact Neurological: Positive: Sensory/Motor Intact, Alert, Oriented to Person Place, Time, CN Intact II-III Psychiatric: Positive: Normal Diagnostics - Vital Signs Vital Signs Temp Pulse Resp BP Pulse Ox 05/11/19 08:48 98.3 F 88 18 132/77 99 - Laboratory Lab Statement: Any lab studies that have been ordered have been reviewed, and results considered in the medical decision making process. Course/Dx - Course Course Of Treatment: 54 yr old with tender tick bite area. No FB seen to remove. Patient put on Ceftin for 14 days due to the tenderness. She will follow up with PMD. - Diagnoses Provider Diagnoses: Tick bite Discharge ED - Sign-Out/Discharge Documenting (check all that apply): Patient Departure All imaging exams completed and their final reports reviewed: No Studies - Discharge Plan Condition: Good Disposition: HOME Prescriptions: Cefuroxime 500 MG(NF) 500 mg PO BID 28 Days #1 tab Cefuroxime 500 MG(NF) 500 mg PO BID 14 Days #28 tab Patient Education Materials: Tick Bite (ED) Referrals: Ashley Chaparro [Primary Care Provider] - 3 Days - Billing Disposition and Condition Condition: GOOD Disposition: Home
== END 2019-05-11 09:47 | disposition home or self-care (01) ==
LOC: UCCORT 08:29
DX: S20.361A Insect bite (nonvenomous) of right front wall of thorax, initial encounter (principal); I10 Essential (primary) hypertension; J44.9 Chronic obstructive pulmonary disease, unspecified; M79.7 Fibromyalgia; M19.90 Unspecified osteoarthritis, unspecified site; Z79.1 Long term (current) use of non-steroidal anti-inflammatories (NSAID); Z88.8 Allergy status to other drugs, medicaments and biological substances; Z91.040 Latex allergy status; Z87.891 Personal history of nicotine dependence; W57.XXXA Bitten or stung by nonvenomous insect and other nonvenomous arthropods, initial encounter; Y92.9 Unspecified place or not applicable
CPT/HCPCS: 99212; G0463

== ENCOUNTER 2019-05-18 05:31 | Day surgery (SDC) | payer OTHER ==
[~2019-05-18 05:31] MED LIST changes: -Buffered Lidocaine 0.9% SYRIN* 5 ML/SYR SYRINGE INTRADERM ONE; +Buffered Lidocaine 1% SYRIN* 1 ML/SYRINGE INTRADERM ONE; -Famotidine IV* 10 MG/ML 2 ML (20 mg) IV ONE
[2019-05-18] MEDS ORDERED: Dexamethasone IV* 4 MG/ML 1 ML (4 MG) IV SLOW PU ONE (06:00)
[2019-05-18] MEDS ORDERED: Levalbuterol 0.63MG/3ML NEB* UNIT OF USE INH ONE ×2 (06:00→06:12)
[2019-05-18] MEDS ORDERED: Lactated Ringers 1000 ML Bag* 1,000 ML IV SCH (06:00)
[2019-05-18] MEDS ORDERED: Dexamethasone IV* 4 MG/ML 1 ML (4 MG) ONE (06:12)
[2019-05-18] MEDS ORDERED: ceFAZolin 2 GM in NS PREMIX(*) 2 GM/100 ML BAG IVPB ONE (06:13)
[2019-05-18] MEDS ORDERED: ROPIVACAINE 5 MG/ML 30 ML BTL (0.5%) ONE (07:05)
[2019-05-18] MEDS ORDERED: Phenylephrine 10 MG/ML VIAL* 1 ML VIAL ONE (07:21)
[2019-05-18] MEDS ORDERED: Lidocaine 2% PF * 5 ML VIAL ONE (07:22)
[2019-05-18] MEDS ORDERED: Ondansetron INJ* 2 MG/ML VIAL ONE (07:22)
[2019-05-18] MEDS ORDERED: Midazolam* 1 MG/ML 5 ML VIAL (5 MG) ONE (07:23)
[2019-05-18] MEDS ORDERED: Atracurium* 10 MG/ML 10 ML VIAL ONE (07:23)
[2019-05-18] MEDS ORDERED: fentaNYL* 50 MCG/ML 2 ML VIAL (100 MCG VIAL) ONE (07:23)
[2019-05-18] MEDS ORDERED: Bupivacaine 0.25% SDV PF* 10 ML VIAL INJ ONE ×2 (07:35→09:46)
[2019-05-18] MEDS ORDERED: Lidocaine 1% w EPI 1:200,000* SDV 30 ML VIAL ONE ×2 (07:35→07:43)
[2019-05-18] MEDS ORDERED: Lidocaine 1.5% EPI 1:200,000* 30 ML SDV ONE (07:45)
[2019-05-18] MEDS ORDERED: oxyCODONE/Acetamin 5/325 MG* TAB PO PRN (09:15)
[2019-05-18] MEDS ORDERED: HYDROmorphone INJ1* 1 MG/ML SYRINGE IV PRN (09:15)
[2019-05-18] MEDS ORDERED: Scopolamine 1.5 mg* PATCH TRANSDERM PRN (09:15)
[2019-05-18] MEDS ORDERED: Naloxone* 0.4 MG/ML 1 ML VIAL IV PRN (09:15)
[2019-05-18] MEDS ORDERED: fentaNYL* 50 MCG/ML 2 ML VIAL (100 MCG VIAL) IV PRN (09:15)
[2019-05-18] MEDS ORDERED: Ondansetron INJ* 2 MG/ML VIAL IV PRN (09:15)
[2019-05-18] MEDS ORDERED: DiMENhydriNATE IV* 50 MG/ML VIAL IV PUSH PRN (09:15)
[2019-05-18 12:09] VITALS: BP 112/70
--- NOTE | 2019-05-18 22:05 | OP ---
DATE OF OPERATION: 05/18/19 - [facility] DATE OF : 69 SURGEON: Bang Rosa MD LEPIDOPTERIST: TATE Del Valle ANESTHESIOLOGIST: Dr. Garcia. ANESTHESIA: General plus peripheral nerve block. PRE-OP DIAGNOSES: 1. Left shoulder rotator cuff tear. 2. Left shoulder impingement syndrome. 3. Left shoulder acromioclavicular degenerative joint disease. POST-OP DIAGNOSES: 1. Left shoulder impingement syndrome. 2. Left shoulder biceps tendinitis. 3. Left shoulder acromioclavicular degenerative joint disease. OPERATIVE PROCEDURE: 1. Left shoulder arthroscopic glenohumeral debridement 2. Left shoulder biceps tenotomy 3. Left shoulder arthroscopic decompression with subacromial bursectomy and acromioplasty. 4. Left shoulder distal clavicle excision. INDICATIONS: Ms. Gallego is 54. She has left shoulder pain. MRI had shown lateral tendinosis. I thought she probably had a full-thickness tear. We talked about treatment options. She wanted to proceed with surgery. ESTIMATED BLOOD LOSS: 20 mL. COMPLICATIONS: None. FINDINGS: See above and below. DESCRIPTION OF PROCEDURE: Ms. Gallego was seen in the preoperative holding area. The correct side, site, and procedures were identified. We came back to the operating room. She was positioned in the beach-chair position. The arm was prepped and draped in usual fashion and timeout was performed. The arm was held in place with the use of the [employer] SPIDER device. I first created a posterior portal by using 11 blade and then cannulated the joint with the obturator. The camera was placed through the posterior portal. I then created an anterior portal using outside-in technique. When I had the cannula placed in the rotator interval, I introduced a probe. I examined the biceps tendon. It looked like there was a little bit of a superior labrum peel- off and some biceps tendinitis, so I went ahead and performed a biceps tenotomy. The shaver and the radiofrequency ablator were used to perform a debridement of the glenohumeral joint. I did examine the rotator cuff insertion and I did not notice any significant peel-off of the tendon insertion or a tear. The debridement was completed with a combination of the shaver and the radiofrequency ablater. I then removed the camera from the glenohumeral joint and placed in the subacromial space. A lateral portal site in the typical location was created. A full and complete subacromial decompression was performed by excising the bursa. I examined the superior aspect of the rotator cuff tendon, and again, I did not note a tear. I went ahead and performed an acromioplasty with a melissa excising about 2 to 3 mm of the undersurface of the acromion. Again, I did a very thorough decompression; I did not note any rotator cuff tear. At this point, the debridement was done, so I retrieved the arthroscopic equipment. I did go ahead and make an incision over the superior aspect of the acromioclavicular joint. Dissection was carried down. The superior AC ligaments were incised longitudinally. Baby Hohmann's were placed. The distal 1 cm of the clavicle was excised. Bone wax was placed on the cancellous bed. The wound was irrigated out. The superior AC ligaments were closed with 0 Vicryl suture. Skin was closed with 3-0 nylon suture as were all the arthroscopic portals. She was placed in a soft dressing and sling and taken to the recovery room in stable condition. [id number]/[facility] #: [id number] YANNICK
== END 2019-05-18 12:00 | disposition home or self-care (01) ==
LOC: OR 05:31
PROVIDERS: ATTEND Orthopaedic Surgery Hand Surgery
DX: M75.41 Impingement syndrome of right shoulder (principal); M75.22 Bicipital tendinitis, left shoulder; M19.012 Primary osteoarthritis, left shoulder; F41.8 Other specified anxiety disorders; J44.9 Chronic obstructive pulmonary disease, unspecified; F31.9 Bipolar disorder, unspecified; G89.18 Other acute postprocedural pain; L40.50 Arthropathic psoriasis, unspecified; Z72.0 Tobacco use
CPT/HCPCS: 88304; 88311; J0690; J1100; J2001; J2250; J2405; J2795; J3010; J3490